=== PATIENT | female | born 1980 | race American Indian/Alaskan Native ===

== ENCOUNTER 2017-03-20 13:11 | Emergency (ER) | payer MEDICAID ==
--- NOTE | 2017-03-20 15:25 | Emergency Department Report ---
ED Chest Pain HPI - General Chief Complaint: Chest Pain Stated Complaint: POSS FRACTURED RIB/CHEST PAIN Time Seen by Provider: 03/20/17 15:21 Source: patient Mode of arrival: Ambulatory Limitations: No Limitations - History of Present Illness Initial Comments: 36-year-old female past medical history PA presents with complaint of 3 weeks of intermittent right-sided chest pain. Denies any associated nausea or vomiting but does state it is slightly pleuritic. Patient states that pain has been intensifying slightly. Denies any recent travel no recent surgeries denies any history of PE or DVT denies any lower extremity swelling. Denies any chest trauma no recent falls no direct blunt trauma to chest area patient states that she has been coughing for the last 3 weeks. MD Complaint: chest pain Onset/Timin -: week(s) Onset: during rest, during exertion Pain Location: substernal, right chest Severity: moderate Severity scale (0 -10): 7 Quality: aching, sharp Consistency: intermittent Worsens With: exertion, inspiration - Related Data Previous Rx's Medication Instructions Recorded Last Taken Type Diclofenac Sodium 50 mg PO Q8H PRN #30 tablet. 03/20/17 Unknown Rx Allergies Allergy/AdvReac Type Severity Reaction Status Date / Time acetaminophen [From Vicodin] Allergy Unknown Verified 03/20/17 13:33 hydrocodone bitartrate Allergy Unknown Verified 03/20/17 13:33 [From Vicodin] levetiracetam [From Keppra] Allergy Unknown Verified 03/20/17 13:33 FRED score - Fred Score Age > 65: (0) No Aspirin use within the Past 7 Days: (0) No 3 or more CAD Risk Factors: (1) Yes 2 or more Angina events in past 24 hrs: (1) Yes Known CAD with more than 50% Stenosis: (0) No Elevated Cardiac Markers: (0) No ST Deviation Greater than 0.5mm: (0) No FRED Score: 2 ED Review of Systems ROS: Stated complaint: POSS FRACTURED RIB/CHEST PAIN Other details as noted in HPI Constitutional: denies: chills, fever Eyes: denies: eye pain, eye discharge, vision change ENT: denies: ear pain, throat pain Respiratory: cough. denies: shortness of breath, wheezing Cardiovascular: chest pain. denies: palpitations Endocrine: no symptoms reported Gastrointestinal: denies: abdominal pain, nausea, diarrhea Genitourinary: denies: urgency, dysuria, discharge Musculoskeletal: denies: back pain, joint swelling, arthralgia Skin: denies: rash, lesions Neurological: denies: headache, weakness, paresthesias Psychiatric: denies: anxiety, depression Hematological/Lymphatic: denies: easy bleeding, easy bruising ED Past Medical Hx - Past Medical History Hx Asthma: Yes Additional medical history: defibilator,diverticulosis,PA 2012 - Surgical History Additional Surgical History: defibilator - Social History Smoking Status: Never Smoker Substance Use Type: Marijuana - Medications Home Medications: Home Medications Medication Instructions Recorded Confirmed Last Taken Type Diclofenac Sodium 50 mg PO Q8H PRN #30 tablet. 03/20/17 Unknown Rx ED Physical Exam - General Limitations: No Limitations General appearance: alert, in no apparent distress - Head Head exam: Present: atraumatic, normocephalic - Eye Eye exam: Present: normal appearance, PERRL, EOMI - ENT ENT exam: Present: mucous membranes moist - Neck Neck exam: Present: normal inspection, full ROM - Respiratory Respiratory exam: Present: normal lung sounds bilaterally. Absent: respiratory distress - Cardiovascular Cardiovascular Exam: Present: normal rhythm, tachycardia. Absent: systolic murmur, diastolic murmur, rubs, gallop - GI/Abdominal GI/Abdominal exam: Present: soft, normal bowel sounds - Extremities Exam Extremities exam: Present: normal inspection - Back Exam Back exam: Present: normal inspection - Neurological Exam Neurological exam: Present: alert, oriented X3 - Psychiatric Psychiatric exam: Present: normal affect, normal mood - Skin Skin exam: Present: warm, dry, intact, normal color. Absent: rash ED Course Vital Signs 03/20/17 03/20/17 03/20/17 13:29 16:51 19:08 Temperature 98 F Pulse Rate 77 Respiratory 18 18 16 Rate Blood Pressure 111/77 Blood Pressure [Left] O2 Sat by Pulse 100 100 Oximetry 03/20/17 19:16 Temperature 97.6 F Pulse Rate 78 Respiratory 16 Rate Blood Pressure Blood Pressure 100/68 [Left] O2 Sat by Pulse 100 Oximetry ED Medical Decision Making - Lab Data Result diagrams: 03/20/17 16:24 03/20/17 16:24 - Medical Decision Making A/P: Right-sided chest pain 1-d-dimer was positive, f/u CTA shows no pulmonary embolism 2- trop negative 1, EKG sinus 3- diclofenac when necessary 4- follow-up with primary care and outpatient cardiology. I emphasized the importance of outpatient follow-up to the patient 5- discussed case with Dr. Gordon before discharging the patient, Dr. Gordon informed me to prescribe the patient diclofenac he reviewed all patient's labs and results and has informed me that it is safe to discharge her Critical care attestation.: If time is entered above; I have spent that time in minutes in the direct care of this critically ill patient, excluding procedure time. ED Disposition Clinical Impression: Chest wall pain Disposition: DC- TO HOME OR SELFCARE Is pt being admited?: No Does the pt Need Aspirin: No Condition: Stable Instructions: Chest Pain (ED), Costochondritis (ED) Prescriptions: Diclofenac Sodium 50 mg PO Q8H PRN #30 tablet.dr LIM Reason: Pain Referrals: JANES RAYMUNDO MD [Staff Physician] - 3-5 Days JOSE D RIBERA MD [Staff Physician] - 3-5 Days Forms: Work/School Release Form(ED) Time of Disposition: 20:17
[2017-03-20] MEDS ORDERED: PERCOCET 5/325 PO ONE (16:39)
[2017-03-20 17:05] LABS: Basophils % (Auto) 0.8 % (0.0-1.8); Eosinophils % (Auto) 1.8 % (0.0-4.3); Hematocrit 34.9 % (30.3-42.9); Hemoglobin 11.4 gm/dl (10.1-14.3); Mean Corpuscular HGB Conc 33 % (30-34); Mean Corpuscular Hemoglobin 28 pg (28-32); Mean Corpuscular Volume 86 fl (79-97); Platelet Count 291 K/mm3 (140-440); Red Blood Count 4.05 M/mm3 (3.65-5.03); Red Cell Distribution Width 15.2 % (13.2-15.2); White Blood Count 6.8 K/mm3 (4.5-11.0)
[2017-03-20 17:14] LABS: Creatine Kinase 105 units/L (30-135)
[2017-03-20 17:16] LABS: Anion Gap 22 mmol/L; Blood Urea Nitrogen 10 mg/dL (7-17); Calcium 8.9 mg/dL (8.4-10.2); Carbon Dioxide 21 mmol/L (22-30); Chloride 101.5 mmol/L (98-107); Glucose 64 mg/dL (65-100); Sodium 140 mmol/L (137-145)
[2017-03-20 17:35] LABS: Creatine Kinase MB < 1.0 ng/mL (0.0-4.0)
--- NOTE | 2017-03-20 19:12 | Cat Scan Report ---
FINAL REPORT PROCEDURE: CT ANGIO CHEST TECHNIQUE: Computerized tomographic angiography of the chest was performed during the IV injection of iodinated nonionic contrast including image processing. The image data was postprocessed using 2-dimensional multiplanar reformatted (MPR) and 3-dimensional (MIP and/or volume rendered) techniques. HISTORY: right side pleurtic chest pain ? pe COMPARISON: No prior studies are available for comparison. FINDINGS: Pulmonary outflow tract, right and left main pulmonary arteries and their proximal branches: Clear, no filling defects seen to suggest pulmonary embolus. Pericardium: No evidence of pericardial effusion. Pacemaker is implanted in the left side of the chest. Cardiac leads are visualized in the right side of the heart. Thoracic aorta: No evidence of aneurysmal dilatation or dissection. Coronary arteries: Are unremarkable. Mediastinum and hilar regions: Nonspecific subcentimeter lymph nodes are visualized lateral to the aortic arch and scattered throughout the middle mediastinum and hilar regions. These do not appear to be pathologically enlarged.. There is increased density in the anterior mediastinum conforming to the contours of the anterior mediastinum suggesting residual thymic tissue. Lung Rojas: Clear Upper abdomen: No acute or focal abnormality is seen. Other: Large amount of contrast visualized refluxing into the inferior vena cava and intrahepatic veins. This can be seen with tricuspid insufficiency. There is a 8.6 x 5.7 millimeter nodular density anterior aspect left breast seen on image 103 series 2 axial image. Correlation with physical exam ultrasound and mammography recommended. IMPRESSION: No evidence of pulmonary embolus. Pacemaker in place. Large amount of reflux seen extending into the inferior vena cava and intrahepatic veins as described. Nodular density left breast as described above. Recommend correlation with physical exam ultrasound and mammography.
[2017-03-20 19:17] VITALS: BP 100/68
== END 2017-03-20 20:20 | disposition home or self-care (01) ==
LOC: ED 13:11
DX: R07.89 Other chest pain (principal); J45.909 Unspecified asthma, uncomplicated; F12.90 Cannabis use, unspecified, uncomplicated; I25.2 Old myocardial infarction; Z88.8 Allergy status to other drugs, medicaments and biological substances
CPT/HCPCS: 36415; 71275; 80048; 81025; 82550; 82553; 84484; 84703; 85025; 85379; 93005; 93010; 99284; Q9967

== ENCOUNTER 2017-03-29 00:39 | Emergency (ER) | payer MEDICAID ==
[2017-03-29 02:14] LABS: Basophils % (Auto) 0.5 % (0.0-1.8); Eosinophils % (Auto) 2.2 % (0.0-4.3); Hematocrit 33.5 % (30.3-42.9); Hemoglobin 11.1 gm/dl (10.1-14.3); Mean Corpuscular HGB Conc 33 % (30-34); Mean Corpuscular Hemoglobin 28 pg (28-32); Mean Corpuscular Volume 84 fl (79-97); Platelet Count 279 K/mm3 (140-440); Red Blood Count 3.97 M/mm3 (3.65-5.03); Red Cell Distribution Width 14.9 % (13.2-15.2); White Blood Count 6.1 K/mm3 (4.5-11.0)
[2017-03-29 02:15] LABS: Alanine Aminotransferase 20 units/L (7-56); Albumin/Globulin Ratio 1.3 %; Alkaline Phosphatase 55 units/L (35-129); Anion Gap 18 mmol/L; Blood Urea Nitrogen 12 mg/dL (7-17); Calcium 8.8 mg/dL (8.4-10.2); Carbon Dioxide 25 mmol/L (22-30); Chloride 101.8 mmol/L (98-107); Glucose 80 mg/dL (65-100); Lipase 45 units/L (13-60); Potassium 3.6 mmol/L (3.6-5.0); Sodium 141 mmol/L (137-145)
[2017-03-29 03:58] LABS: Bilirubin,Urine NEG (Negative); Blood,Urine NEG (Negative); Ketones,Urine TR mg/dL (Negative); Leukocyte Esterase,Urine NEG (Negative); Mucus,Urine 1+ /HPF; Nitrite,Urine NEG (Negative); Protein,Urine <15 mg/dL mg/dL (Negative); Urobilinogen,Urine < 2.0 mg/dL (<2.0)
[2017-03-29 05:45] VITALS: BP 106/67
== END 2017-03-29 05:31 | disposition left against medical advice (07) ==
LOC: ED 00:39
DX: R10.30 Lower abdominal pain, unspecified (principal); R11.0 Nausea; Z53.21 Procedure and treatment not carried out due to patient leaving prior to being seen by health care provider
CPT/HCPCS: 36415; 80053; 81001; 83690; 84703; 85025

== ENCOUNTER 2017-06-03 19:12 | Emergency (ER) | payer MEDICAID ==
[2017-06-03 19:48] VITALS: BP 99/71
[2017-06-03 19:50] LABS: Basophils % (Auto) 0.8 % (0.0-1.8); Eosinophils % (Auto) 3.4 % (0.0-4.3); Hematocrit 35.6 % (30.3-42.9); Hemoglobin 11.6 gm/dl (10.1-14.3); Mean Corpuscular HGB Conc 33 % (30-34); Mean Corpuscular Hemoglobin 28 pg (28-32); Mean Corpuscular Volume 86 fl (79-97); Platelet Count 283 K/mm3 (140-440); Red Blood Count 4.14 M/mm3 (3.65-5.03); Red Cell Distribution Width 15.4 % (13.2-15.2)
[2017-06-03 20:14] LABS: Alanine Aminotransferase 11 units/L (7-56); Albumin 4.3 g/dL (3.9-5); Albumin/Globulin Ratio 1.3 %; Alkaline Phosphatase 49 units/L (35-129); Anion Gap 19 mmol/L; Blood Urea Nitrogen 8 mg/dL (7-17); Calcium 9.3 mg/dL (8.4-10.2); Carbon Dioxide 24 mmol/L (22-30); Chloride 102.2 mmol/L (98-107); Glucose 88 mg/dL (65-100); Lipase 40 units/L (13-60); Sodium 141 mmol/L (137-145); Total Protein 7.5 g/dL (6.3-8.2)
[2017-06-03 20:39] LABS: Bilirubin,Urine NEG (Negative); Blood,Urine NEG (Negative); Ketones,Urine TR mg/dL (Negative); Leukocyte Esterase,Urine NEG (Negative); Mucus,Urine 1+ /HPF; Nitrite,Urine NEG (Negative); Protein,Urine <15 mg/dL mg/dL (Negative); Urobilinogen,Urine < 2.0 mg/dL (<2.0); WBC,Urine < 1.0 /HPF (0.0-6.0)
== END 2017-06-03 22:12 | disposition left against medical advice (07) ==
LOC: ED 19:12
DX: R10.9 Unspecified abdominal pain (principal); R11.0 Nausea; I25.2 Old myocardial infarction; F12.90 Cannabis use, unspecified, uncomplicated; Z88.8 Allergy status to other drugs, medicaments and biological substances; Z53.21 Procedure and treatment not carried out due to patient leaving prior to being seen by health care provider
CPT/HCPCS: 36415; 80053; 81001; 83690; 84703; 85025